=== PATIENT | male | born 1990 | race Caucasian/White ===

== ENCOUNTER 2016-11-24 17:35 | Emergency (ER) | payer OTHER ==
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
[2016-11-24] MEDS ORDERED: KETOROLAC 30 MG/1 ML SDV IVP ONE (17:52)
[2016-11-24] MEDS ORDERED: OXYCODONE/APAP 5/325 TAB PO ONE (19:02)
[2016-11-24] MEDS ORDERED: fentaNYL 100 MCG/2 ML INJ ONE (19:11)
[2016-11-24] MEDS ORDERED: fentaNYL 100 MCG/2 ML INJ IVP ONE (19:14)
[2016-11-24 19:43] VITALS: BP 125/76; PULSE 90; RESP 16; TEMP 97.9; O2SAT 97
== END 2016-11-24 19:43 | disposition home or self-care (01) ==
DX: S52.124A Nondisplaced fracture of head of right radius, initial encounter for closed fracture (principal); F17.200 Nicotine dependence, unspecified, uncomplicated; V18.0XXA Pedal cycle driver injured in noncollision transport accident in nontraffic accident, initial encounter; Y99.8 Other external cause status; Y93.89 Activity, other specified
CPT/HCPCS: 96374; A4565; J1885; J3010